=== PATIENT | male | born 1935 | race Caucasian/White ===

== ENCOUNTER → 2020-07-13 | Outpatient (CLI) | payer OTHER, MEDICARE ==
[~2020-07-13] VITALS: Ht 182.9 cm; Wt 72.6 kg
[~2020-07-13] MED LIST: ATENOLOL 25 MG25 M1 PO; CELECOXIB100 MG PO; COUMARIN1 GM PO; DILTIAZEM ER180 M1 PO; FISH OIL 500 M1 EAC1 PO; FLOMAX0.4 MG PO; JANTOVEN2.5 MG PO; MEDROLDOSEPACK PO; NEURONTIN300 MG PO; PRAVASTATIN SOD80 MG PO; SILDENAFIL CITR50 MG PO; UNICOMPLEX M TA1 TA1 PO; ZYLOPRIM300 MG PO
[2020-07-13 10:48] VITALS: BP 138/79
--- NOTE | 2020-07-13 10:58 | NUR ---
Pain Clinic Assessment: 1. History of Osteoarthritis: BACK History of Rheumatoid Arthritis: Not Applicable 2. Height: 6 ft. 0 in. 182.9 cm. Weight: 160.0 lb. oz. 72.576 kg. Patient's BMI: 21.7 3. Vital Signs: BP: 138/79 Pulse: 64 Resp: 16 Temp: 02 Sat: 100 ECG Mon: 4. Pain Intensity: 5 5. Fall Risk: Dizziness: N Needs help standing or walking: N Fallen in the last 3 months: N Fall risk comments: 6. Patient on Blood Thinner: Warfarin (Coumadin) 7. History of Hypertension: Y 8. Opioid Therapy greater than 6 weeks: N Opiate Contract Signed: 9. Risk Assessment Tool Provided: 0-LOW RISK 10. Functional Assessment Tool: 11. Recreational Drug Use: Never Drug Type: Tobacco Use: Never Smoker Tobacco Type: Amount or Packs/day: How Many Years: Alcohol Use: Yes Frequency: Weekly Quant: 3-4
--- NOTE | 2020-07-20 11:26 | HPC ---
[facility] [place] [address] PAIN MANAGEMENT CONSULTATION Name: NORMAN JOE Room #: REG [facility].#: [id number] Admission: 07/13/20 Attend Phys: Julio Hammond DO Discharge: Date of : 35 Report #: [id number] THIS REPORT FOR: cc: SAQIB LAWSON Physician not on staff Julio Hammond DO ~ DOC #: [id number] cc: MD Julio Lares DO DATE OF SERVICE: 07/13/2020 REFERRING PHYSICIAN: Dr. Wade Tatum CHIEF COMPLAINT: Low back pain, right lower extremity pain and paresthesias. HISTORY OF PRESENT ILLNESS: As you know, the patient is a very pleasant 84-year-old male who reports acute onset of low back pain and right lower extremity pain with paresthesias, presented 06/20/2020. The patient denies injury or trauma that may have led to symptom development. The patient reports that he had been doing very well prior to the initiation of his pain. He has had intermittent back pain in the past, but did not notice any long-term exacerbation of symptoms such as he has been experiencing since 06/20/2020. He has known abdominal herniorrhaphy as well as a right inguinal aneurysm is being evaluated. There was some concern that his symptoms may be related to his underlying medical conditions. These were ruled out. He has trialed conservative medication management to address symptoms, but did not notice much in the way of improvement. He was subsequently referred to our clinic to discuss treatment options for suspected lumbar radiculopathy. The patient indicates his pain is typically intermittent in nature. He describes the pain as shooting, sharp, numbness and tingling. Places current pain score 1-2/10, daily average of 5/10, worst pain has been 9/10. The patient states the pain is exacerbated with walking or standing for any length of time and progresses throughout the day. Sitting and lying down tends to improve the pain. The patient has been referred to our clinic to discuss treatment options for suspected lumbar radiculopathy. PAST MEDICAL HISTORY: 1. Hypertension. 2. Coronary artery disease status post percutaneous stenting. 3. Abdominal hernia. 4. Right inguinal vascular aneurysm. 5. Gout. 6. Benign prostatic hypertrophy. 7. Erectile dysfunction. 8. Dyslipidemia. [address] [address] PAIN MANAGEMENT CONSULTATION Name: NORMAN JOE Basil Room #: REG CL Nida#: [id number] Admission: 07/13/20 Attend Phys: Julio Hammond DO Discharge: Date of : 35 Report #: [id number] PAST SURGICAL HISTORY: 1. Inguinal herniorrhaphy, x2. 2. Abdominal surgeries secondary to small-bowel obstruction. 3. Finger surgery. 4. Percutaneous cardiac stenting. SOCIAL HISTORY: The patient denies tobacco, IV or illicit drug use. Admits to approximately 3-4 alcoholic beverages per week. He is retired, retired in 1995, not receiving workman's compensation nor is trying to obtain disability benefits. He is not in litigation in regards to the pain. He is accompanied by his daughter at present in room today. REVIEW OF SYSTEMS: Positive for wearing corrective eyewear, hearing loss or tinnitus, nose bleed secondary to chronic anticoagulation, heart disease, nocturia, low back pain, right lower extremity pain, chronic abdominal pain and right inguinal pain. All other review of systems negative per 12-point review of systems other than those listed in history of present illness. Pain impact score 28/70. Moderate interference of daily activities secondary to pain. ALLERGIES: No known drug allergies. CURRENT MEDICATIONS: Warfarin 2.5 mg every day, atenolol 25 mg per day, allopurinol 300 mg once a day, tamsulosin 0.4 mg once a day, Cialis 50 mg p.r.n., rosuvastatin 80 mg per day, multivitamin 1 tab per day, diltiazem ER 180 mg 2 per day, omega 3 fish oil 1 tab per day. IMAGING: MRI of lumbar spine obtained 07/01/2020 shows lumbar degeneration throughout. Bilateral foraminal stenosis noted at L2-L3, L3-L4, L4-L5, L5-S1. Moderate central canal stenosis at L4-L5 and L5-S1. No acute disk herniation. No paraspinal mass. Renal cysts are noted. PQRS: The patient has known arthritic changes of the lumbar spine and bilateral hips. No rheumatoid arthritis. He is placing current pain score at 5/10. He is not a fall risk. He has not had a fall in last 3 months. He is on blood thinners in the form of Coumadin. He is treated for hypertension. He is not on chronic opioids. Has a low opiate addiction potential. Pain impact is 28/70, moderate interference of daily activities secondary to pain. PHYSICAL EXAMINATION: VITAL SIGNS: Blood pressure 138/79, pulse 64, respiratory rate 16 unlabored. The patient is 100% on room air. Height 6 feet tall, weight 160 pounds, BMI calculated at 21.7. GENERAL: Well-developed, well-nourished, well-hydrated 84-year-old male appearing stated age. He is placing current pain score at 5/10. HEENT: Normocephalic, atraumatic. Pupils are round. Extraocular muscles are [facility] [address] [place] [address] PAIN MANAGEMENT CONSULTATION Name: NORMAN JOE Room #: REG [facility]#: [id number] Admission: 07/13/20 Attend Phys: Julio Hammond DO Discharge: Date of : 35 Report #: [id number] intact. The patient is wearing a mask in compliance with COVID-19 regulations. LUNGS: Clear. No wheezing, rhonchi or rales. HEART: Heart is irregularly irregular. No gallop, no rub. ABDOMEN: Soft, nontender. EXTREMITIES: Showed no clubbing, no cyanosis. No appreciable edema. MUSCULOSKELETAL: Lower extremity strength appears symmetrical 5/5, intact to light touch, from L1 through S2 dermatomes. Seated straight leg raising negative. Supine straight leg raising positive. Fabere's test is negative. Modified Gaenslen's positive for axial low back pain. Ankle clonus negative. Babinski is negative. Lumbar provocation testing is met with slight increase in axial back pain. ASSESSMENT: 1. Symptomatic lumbar radiculopathy. 2. Central canal stenosis of lumbar spine. 3. Foraminal stenosis of lumbar spine. 4. Lumbosacral spondylosis with radiculopathy. 5. Degeneration of the lumbar spine. PLAN: 1. Based on today's physical exam, the history the patient has provided, the description the patient uses in regards to pain as well as location of symptoms, it would appear the patient is suffering from lumbar radiculopathy secondary to central canal stenosis. The patient and I discussed the findings of his recent MRI and correlated those findings to his current distribution of pain involving mainly the low back and right lower extremity. After reviewing the findings, we discussed the treatment options, following was discussed with the patient today: We discussed physical therapy, stretching exercises and core strengthening as a treatment option. We discussed medication management utilizing neuropathic pain medications such as amitriptyline, nortriptyline, Cymbalta, and Lyrica to address pain. We discussed lumbar epidural injection under fluoroscopic guidance, spinal cord stimulator therapy and ultimately surgical options. After reviewing the risks and benefits of all the proposed treatment options, the patient chose to begin with medication management. 2. The patient will be started on gabapentin 300 mg dose. He will start 1 tab p.o. at bedtime for 3 nights. If no improvement in symptoms, no side effects, increase to 600 mg p.o. at bedtime for 3 nights. If no improvement in symptoms, no side effects, then continue the titration as directed. He was given titration in written form to take as needed. He will titrate up to a point of efficacy. Watch for side effects of sleepiness, disorientation, confusion and mental slowing. If he notes any of these side effects, reduce to the dose prior and contact our clinic. 3. We will start the patient on Celebrex 100 mg dose 1 tab p.o. b.i.d. This will be helpful for axial back pain and general osteoarthritis. As you are aware Celebrex is a nonsteroidal anti-inflammatory that has been shown to be safe with concomitant use of warfarin. He will start the medication immediately [address] [address] PAIN MANAGEMENT CONSULTATION Name: NORMAN JOE Room #: REG CL Nida#: [id number] Admission: 07/13/20 Attend Phys: Julio Hammond DO Discharge: Date of : 35 Report #: [id number] or watch for dyspepsia, worsening of blood pressure, lower extremity edema. If he notes any of the side effects, discontinue immediately. Prescription was provided to the patient in digital form, sent to his local pharmacy. 4. We will see the patient back in followup visit in approximately two to three weeks at that time. If the patient is continuing to experience low back pain and right lower extremity symptoms, we would discuss the possibility of undergoing a lumbar epidural injection under fluoroscopic guidance to address lumbar radicular pain. We wish to thank the referring physician Dr. Tatum for the opportunity to see this patient in consultation. We will keep you apprised of his response to treatment as we address lumbar radiculopathy. Again, we wish to thank you for the opportunity to see the patient in consultation. DO SHY Heard/RANDOLPH/KOFFIE <ELECTRONICALLY SIGNED> By: Julio Hammond DO 07/20/20 [id number] [id number] Julio Hammond DO /nt
== END ==
LOC: PAIN 08:48
PROVIDERS: ATTEND Anesthesiology Pain Medicine
DX: M54.5 Low back pain (principal); M79.661 Pain in right lower leg; R20.2 Paresthesia of skin; I10 Essential (primary) hypertension; I25.10 Atherosclerotic heart disease of native coronary artery without angina pectoris; K46.9 Unspecified abdominal hernia without obstruction or gangrene; K40.90 Unilateral inguinal hernia, without obstruction or gangrene, not specified as recurrent; M10.9 Gout, unspecified; N40.0 Benign prostatic hyperplasia without lower urinary tract symptoms; E78.5 Hyperlipidemia, unspecified; Z79.899 Other long term (current) drug therapy; Z79.891 Long term (current) use of opiate analgesic

== ENCOUNTER → 2020-07-27 | Outpatient (CLI) | payer OTHER, MEDICARE ==
[~2020-07-27] VITALS: Ht 182.9 cm; Wt 74.1 kg
[~2020-07-27] MED LIST changes: +NEURONTIN 300M300 M2 PO
[2020-07-27 10:54] VITALS: BP 140/70
--- NOTE | 2020-07-27 11:19 | NUR ---
Pain Clinic Assessment: 1. History of Osteoarthritis: BACK knee History of Rheumatoid Arthritis: Not Applicable 2. Height: 6 ft. 0 in. 182.9 cm. Weight: 163.4 lb. oz. 74.118 kg. Patient's BMI: 22.2 3. Vital Signs: BP: 140/70 Pulse: 60 Resp: 14 Temp: 02 Sat: 98 ECG Mon: 4. Pain Intensity: 3 knee 5. Fall Risk: Dizziness: N Needs help standing or walking: N Fallen in the last 3 months: N Fall risk comments: 6. Patient on Blood Thinner: Warfarin (Coumadin) 7. History of Hypertension: Y 8. Opioid Therapy greater than 6 weeks: N Opiate Contract Signed: 9. Risk Assessment Tool Provided: 0-LOW RISK 10. Functional Assessment Tool: 11. Recreational Drug Use: Never Drug Type: Tobacco Use: Never Smoker Tobacco Type: Amount or Packs/day: How Many Years: Alcohol Use: Yes Frequency: Quant:
--- NOTE | 2020-07-28 07:16 | HPC ---
[facility] [address] [place] [address] PAIN MANAGEMENT CONSULTATION Name: ONRMAN JOE Room #: REG [facility]#: [id number] Admission: 07/27/20 Attend Phys: Maryse Escalona Discharge: Date of : 35 Report #: [id number] THIS REPORT FOR: cc: SAQIB LAWSON Physician not on staff Maryse Escalona ~ DOC #: [id number] cc: Julio Hammond DO, Jack Uhrig, MD DATE OF SERVICE: 07/27/2020 CHIEF COMPLAINT: Low back pain, right lower extremity pain and paresthesias. HISTORY OF PRESENT ILLNESS: As you know, this is a very pleasant 84-year-old gentleman who returns to the pain clinic today to discuss his titration of gabapentin. He is here present with his daughter today. Today the patient denies any pain in his low back and right leg. He believes the gabapentin that he is taking has resolved that issue per his report. He is currently taking one 300 mg tablet gabapentin at bedtime. He had tried to increase it to 2 tablets, though did not find it beneficial and had side effects of "jerking" per his report, 1 tablet seems to keep his pain at bay and he is grateful for this medication. Today the patient is reporting right knee pain. He believes this is arthritic in nature, rating it a 3/10. He reports stiffness and achy sensation, especially with walking and prolonged standing. He denies pain while he is sitting or lying down and reports he is sleeping quite well with his new medication. The patient reports going to have a vascular surgery repair in August for inguinal aneurysm and he is aware he will need to stop his Celebrex prior to this procedure as well as his anticoagulation medications. ALLERGIES: No known drug allergies. CURRENT LIST OF MEDICATIONS: Gabapentin 300 mg at bedtime, Celebrex 100 mg b.i.d., Coumadin, Tenormin, allopurinol, Flomax, Cialis, pravastatin, multivitamin, diltiazem and fish oil. PQRS: 1. He has osteoarthritic issues in his back and knees. Denies any rheumatoid arthritis. 2. Height is 6 inches, weight is 163, BMI is 22. 3. Vital Signs: Blood pressure 140/70, pulse is 60, respirations 14, oxygen sat is 98%. Pain score is 0-3. 4. Fall Risk: Denies dizziness, does not need help walking or standing, has [facility] [address] [place] [address] PAIN MANAGEMENT CONSULTATION Name: NORMAN JOE Room #: REG [facility]#: [id number] Admission: 07/27/20 Attend Phys: Maryse Escalona Discharge: Date of : 35 Report #: [id number] not fallen in the last 3 months. Patient is on warfarin as well as medicine for hypertension. 5. Opioid Therapy: He denies any opioid use. 6. Risk Assessment: Low. 7. Functional Assessment: . 8. Recreational Drug Use: He denies. He is not a smoker and occasionally drinks alcohol. OBJECTIVE: GENERAL: This is a very pleasant 84-year-old who is well-developed, well-nourished, well hydrated. Placing his pain score 0-3 depending on the location. He is a good historian. HEENT: Normocephalic, atraumatic. Pupils equal, round and reactive. He is wearing a mask. EXTREMITIES: No clubbing, no cyanosis and no appreciable edema. MUSCULOSKELETAL: Tenderness in his right knee. Lower extremity strength is symmetrical at 5/5. Seated straight leg raising is negative. ASSESSMENT: 1. Symptomatic lumbar radiculopathy. 2. Central canal stenosis of lumbar spine. 3. Right knee pain with osteoarthritis. 4. Lumbosacral spondylosis with radiculopathy. 5. Degeneration of lumbar spine. PLAN: We discussed treatment options with the patient today. 1. The patient finds gabapentin 300 mg tablet has been beneficial in decreasing his pain significantly. He did not try to titrate up his gabapentin more than one additional pill and found that the side effects of jerking sensation started, so therefore, he returned back to the 300 mg tablet. I did explain to him that in the future if his pain became problematic again, he may try to increase his gabapentin add a tablet in the morning or again trying 2 tablets at night, reminding him of side effects and complications. No prescriptions needed. He has plenty of medication refill at this time. 2. We did discuss Celebrex medication, he is on 100 mg b.i.d., though he is on anticoagulation therapy and his BUN and creatinine are slightly elevated, I encouraged him to decrease to one tablet a day and see if this is still beneficial in decreasing his pain. He will need to stop for his vascular surgery that is upcoming. I encouraged him to try to remain off of it for a while and see if he may utilize Voltaren gel, which does not have the systemic effects to see if this is beneficial in helping his right knee pain. The daughter will buy this medication [id number]. 3. The patient will come as needed for medication refill or I encouraged him that he may get this medication from his primary care doctor and no need to return to our clinic. [address] [address] PAIN MANAGEMENT CONSULTATION Name: NORMAN JOE Room #: [facility]#: [id number] Admission: 07/27/20 Attend Phys: Maryse Escalona Discharge: Date of : 35 Report #: [id number] Time spent with the patient in consultation, reviewing pertinent imaging, reviewing recent studies and clinical notes, physical examination and correlation of findings and medical documentation to determine possible treatment options is 14 minutes. Time spent preparing for appointment, reviewing prescription monitoring reports, reviewing previous records and treatment options, reviewing current medications is 5 minutes. Time spent in documentation of visit and plan of treatment with collaborating physician, Dr. Julio Hammond is 3 minutes. Total time spent 22 minutes. LEONARD Wells/KAITLIN <ELECTRONICALLY SIGNED> By: Maryse Escalona 07/28/20 0716 [id number] Maryse Escalona /laz
== END ==
LOC: PAIN 07:01
PROVIDERS: ATTEND Clinical Nurse Specialist Adult Health
DX: M47.27 Other spondylosis with radiculopathy, lumbosacral region (principal); M51.16 Intervertebral disc disorders with radiculopathy, lumbar region; M48.061 Spinal stenosis, lumbar region without neurogenic claudication; M79.604 Pain in right leg; R20.2 Paresthesia of skin